=== PATIENT | male | born 1960 | race Caucasian/White ===

== ENCOUNTER 2018-09-18 05:27 | Day surgery (SDC) | payer OTHER ==
[~2018-09-18 05:27] MED LIST: LOSARTAN POTASS50 MG PO; ODEFSEY TABLET1 EACH PO; OMEGA-31000 MG PO; SYNTHROID50 MCG PO
[2018-09-18] MEDS ORDERED: RECTICARE30 GM TOP (10:28)
[2018-09-18] MEDS ORDERED: PERCOCET 5-3251 EACH PO (10:28)
== END 2018-09-18 15:20 | disposition home or self-care (01) ==
LOC: CIR.AMB 05:27
DX: D12.9 Benign neoplasm of anus and anal canal (principal)